=== PATIENT | female | born 1985 | race Two or more races ===

== ENCOUNTER → 2023-12-29 15:46 | Outpatient (REF) | payer BC, SELFPAY | LOC: RAD 15:46 | PROVIDERS: ATTENDING PHYSICIAN Physician Assistant Medical | DX: R05.3 Chronic cough (principal) | CPT/HCPCS: 71046 ==

== ENCOUNTER 2024-08-22 00:06 | Emergency (ER) | payer BC, SELFPAY ==
[2024-08-22 00:16] VITALS: BP 110/74
[2024-08-22 06:27] VITALS: BP 112/71; BMI 23.9
--- NOTE | 2024-08-22 06:47 | ED.GENMED ---
History of Present Illness
General
Chief Complaint: Female Shank Taper/Gu symptoms
Source: patient
Time Seen by Provider: 08/22/24 06:20
History of Present Illness
History of Present Illness:
39-year-old female presents to the emergency room complaining of pain, redness left groin. Symptoms began as a small little pimple about a week or so ago. Over the past couple days the areas gotten much larger or painful. No fever or chills.
Patient is 6 weeks by dates. She has been taking Tylenol which has not helped very much. She denies any previous abscesses.
Phy Exam
Physical Exam
Physical Exam:
General: Awake, Alert, Oriented X3. No acute distress.
Vitals: unremarkable
Head: Atraumatic
Eyes: Pupils equal, EOMI
Throat: Airway intact, no exudates
Neuro: Nonfocal
Skin: Warm, dry, no rash. Approximately 1 cm x 0.5 cm area of fluctuance and swelling noted in the left inguinal crease. There is some mild surrounding erythema.
Extremities: pulses equal b/l, no edema
Course
Vital Signs
Initial and Last Documented VS:
Initial Vital Signs
Temp Pulse Resp BP Pulse Ox
97.8 F 68 20 110/74 100
08/22/24 00:16 08/22/24 00:16 08/22/24 00:16 08/22/24 00:16 08/22/24 00:16
Last Documented Vital Signs
Temp Pulse Resp BP Pulse Ox
98.0 F 53 18 112/71 100
08/22/24 06:27 08/22/24 06:27 08/22/24 06:27 08/22/24 06:27 08/22/24 06:27
Procedures
Incision/Drainage/Joint Aspiration
Left Groin:
Anethesia: 1% Lidocaine with Epi
Preparation: cleaned with Betadine
Type of procedure: incise and drain
Nature of site: abscess
Description of abscess: less than 3cm
Loculations broken up: Yes
How much fluid was obtained?: small amount
Fluid description: purulent
Treatment: left open for drainage
MDM/Problems Addressed
Differential Diagnosis Includes:
Abscess, inflamed lymph node, cyst
MDM/Problems Addressed:
His exam suggestive of a abscess. Ultrasound used to confirm the presence of a fluid-filled structure which appears to have hyperechoic material within. Consistent with abscess. Incision and drainage performed with the return of about 3-4 cc of
pus. Wound left open to drain. No antibiotics indicated at this time after incision and drainage.
*Pulse Oximetry
Patient hypoxic: no
*Critical Care Note
Total Time (30-74mins, 75-104mins- exclusive of procedures): Not Applicable
ED Attending Note
-
Portions of this chart may have been created with voice recognition software.� Occasional wrong word or��sound alike� substitutions may have occurred due to the inherent limitations of voice recognition software.
Discharge Plan
Departure
Patient Disposition: Home (Routine Discharge)
Date of Disposition: 08/22/24
Time of Disposition: 06:47
Patient with high blood pressure during this ER visit?: No
Condition: Good
Discharge Problem:
Abscess of groin, left
Instructions: Abscess incision and drainage - ED discharge instructions
Prescriptions:
No Action
No Current Medications
0
Activity Restrictions/Additional Instructions:
The incision will likely continue to drain some blood at plus which is expected. Pain and redness should decrease over the next day or so. Return to the emergency room if the redness is not improving or you feel things are getting worse in any way.
Interventions
Interventions:
*Risk Screen - Suicide Last Done: 08/22/24 00:16
*General Assessment Last Done: 08/22/24 06:27
*Neglect/Abuse Screening Last Done: 08/22/24 00:16
*ED- Fall Risk Assessment Last Done: 08/22/24 06:32
*ED COVID-19 Vaccine History Last Done: 08/22/24 06:32
ED-Female Genitourinary Assessment Last Done: 08/22/24 06:27
Discharge Date and Time
Print Language: TURKISH
== END 2024-08-22 07:05 | disposition home or self-care (01) ==
LOC: EMR 00:06
PROVIDERS: EMERGENCY PHYSICIAN Emergency Medicine
DX: O99.711 Diseases of the skin and subcutaneous tissue complicating pregnancy, first trimester (principal); L02.214 Cutaneous abscess of groin; Z3A.01 Less than 8 weeks gestation of pregnancy
CPT/HCPCS: 99282; 10060